=== PATIENT | female | born 1980 | race American Indian/Alaskan Native ===

== ENCOUNTER 2018-04-15 09:18 | Emergency (ER) | payer MEDICAID ==
--- NOTE | 2018-04-15 11:22 | Emergency Department Report ---
[facility] Chief Complaint: Eye Problems Stated Complaint: POSS PINK EYE ON BOTH Duration: 2 Days Side: Bilateral Severity: moderate Symptoms: Yes Eye Itching, Yes Eye Redness, Yes Eye Pain, Yes Purulent Drainage, No Mucous Drainage, No Blurred Vision, No Preceding URI, No H/O Allergic Rhinitis, No Contact Lens Use, No Trauma, No Fever, No Headache Other History: This is a 37-year-old [place] female presents with bilateral redness to both eyes for 2 days. Patient also with itching and crusting upon waking. Patient states her son was diagnosed with pink eye 2 weeks ago. She denies change to the admission, rhinorrhea, fever, or visual changes. ED Review of Systems ROS: Stated complaint: POSS PINK EYE ON BOTH Other details as noted in HPI Constitutional: denies: chills, fever Eyes: eye discharge. denies: eye pain, vision change ENT: denies: ear pain, throat pain Respiratory: no symptoms reported Cardiovascular: denies: chest pain, palpitations Skin: denies: rash, lesions Neurological: denies: headache, weakness, paresthesias Psychiatric: denies: anxiety, depression ED Past Medical Hx - Past Medical History Previous Medical History?: No - Surgical History Past Surgical History?: Yes Additional Surgical History: Partial hysterectomy - Social History Smoking Status: Never Smoker Substance Use Type: None - Medications Home Medications: Home Medications Medication Instructions Recorded Confirmed Last Taken Type Erythromycin [Erythromycin Ophth 10 applic OP QID #1 tube 04/15/18 Unknown Rx Oint] [facility] Exam - Exam General: Vital signs noted. No distress. Alert and acting appropriately. Eye Exam: Both Injection, Both Chemosis, Both EOMI, Both Purulent Discharge, Neither Abnormal Pupil, Neither Eye Foreign Body, Neither Lid Foreign Body, Neither Mucous Discharge, Neither Fluorescein Uptake, Neither Fluorescein Uptake (slit lamp), Neither Cell/Flare (slit lamp), Neither Corneal Edema, Neither Photophobia HEENT: No Nasal Congestion, No Pharyngeal Erythema Remainder of HEENT: Normal Lungs: Yes Clear Lung Sounds, Yes Good Air Exchange, No Wheezes, No Stridor, No Cough, No Nasal Flaring, No Retractions, No Use of Accessory Muscles ED Course Vital Signs 04/15/18 09:46 Temperature 98.9 F Pulse Rate 94 H Respiratory 18 Rate Blood Pressure 128/77 O2 Sat by Pulse 96 Oximetry ED Medical Decision Making - Medical Decision Making This is a 37 y.o. female presents with bilateral pink eyes with mucous discharge for 2 days. Patient is stable and was examined by me. Vitals normal. Physical assessment susceptible of conjunctivitis bilateral. Start erythromycin. Discussed plan with patient and she agreed with plan. Discharged home in stable condition. Follow up with PCP in 24-72 hours. Critical care attestation.: If time is entered above; I have spent that time in minutes in the direct care of this critically ill patient, excluding procedure time. ED Disposition Clinical Impression: Conjunctivitis Qualifiers: Conjunctivitis type: acute Acute conjunctivitis type: bacterial Laterality: bilateral Qualified Code(s): H10.33 - Unspecified acute conjunctivitis, bilateral Disposition: TO HOME OR SELFCARE Is pt being admited?: No Does the pt Need Aspirin: No Condition: Stable Instructions: Conjunctivitis (ED) Additional Instructions: Pinkeye is very contagious so please wash hands frequently. Don't share any towels or bedding to prevent spread of infection. Follow up with her care provider in 24-72 hours. Use cool compress to each eye to decrease swelling. Avoid rubbing or touching eyes, because rubbing eyes can cause worsening symptoms. Take medication as prescribed. Return to ER if swelling don't improve or difficulty breathing after 2 days of medication. Prescriptions: Erythromycin [Erythromycin Ophth Oint] 10 applic OP QID #1 tube Referrals: SHAUNA AHRT MD [Primary Care Provider] - 3-5 Days [facility] [Outside] - 3-5 Days [facility] [Outside] - 3-[address] [facility] [Provider Group] - 3-5 Days Forms: Work/School Release Form(ED) Time of Disposition: 11:22
== END 2018-04-15 11:32 | disposition home or self-care (01) ==
LOC: ED 09:18
CPT/HCPCS: 99282